=== PATIENT | male | born 1995 | race Caucasian/White ===

== ENCOUNTER → 2023-06-16 14:13 | Outpatient (CLI) | payer BC, SELFPAY ==
[2023-06-16 16:11] LABS: Semen Viscosity Stringy (Normal); Volume,Semen < 1.0 ml (2.0-5.0); WBCs,Semen Negative
[2023-06-16 19:07] LABS: 3Hr Motility Quality Moderate Progression (Mod-Rapid); 3Hr Sperm Motility 60 % (50-60)
[2023-06-16 19:08] LABS: Sperm Count 21 mil/mm3 (20-160)
[2023-06-16 20:40] LABS: Sperm Morphology Normal (Normal)
== END ==
PROVIDERS: PCP Physician Assistant; Visit Provider Obstetrics & Gynecology
DX: N46.9 Male infertility, unspecified (principal)
CPT/HCPCS: 89320

== ENCOUNTER 2025-05-14 15:02 | Outpatient (CLI) | payer BC, SELFPAY ==
[2025-05-14 19:21] LABS: Volume,Semen 2.0 ml (2.0-5.0)
[2025-05-14 19:22] LABS: PH,Semen 7.0 (7.3-8.3); WBCs,Semen Negative
[2025-05-14 19:23] LABS: 3Hr Motility Quality Moderate Progression (Mod-Rapid); Sperm Motility 70 % (50-90)
[2025-05-14 19:25] LABS: Sperm Count 1 mil/mm3 (20-160)
== END 2025-05-14 23:59 | disposition home or self-care (01) ==
LOC: LAB 15:03
PROVIDERS: PCP Nurse Practitioner Family
DX: Z31.41 Encounter for fertility testing (principal)
CPT/HCPCS: 89320